=== PATIENT | male | born 2000 | race Caucasian/White ===

== ENCOUNTER 2020-07-14 12:42 | Emergency (ER) | payer BC, OTHER ==
[~2020-07-14] VITALS: Ht 182.9 cm; Wt 104.3 kg
[2020-07-14 12:45] VITALS: BP_SYST 122
[2020-07-14] MEDS ORDERED: KETOROLAC TROMETHAMINE 60 MG/2 ML VIAL IM ONE ×2 (13:35→13:45)
[2020-07-14] MEDS ORDERED: IBUP-1971 PO (13:51)
[2020-07-14 13:55] VITALS: BP_SYST 122
== END 2020-07-14 13:55 | disposition home or self-care (01) ==
LOC: SED 12:42
DX: S90.32XA Contusion of left foot, initial encounter (principal); V00.131A Fall from skateboard, initial encounter; Y93.51 Activity, roller skating (inline) and skateboarding; Y92.89 Other specified places as the place of occurrence of the external cause; Y99.8 Other external cause status
CPT/HCPCS: 73630; 96372; 99283; J1885